=== PATIENT | female | born 1990 | race Two or more races ===

== ENCOUNTER 2024-05-15 17:23 | Observation (INO) | payer MEDICAID, SELFPAY ==
[2024-05-15 17:28] VITALS: BP 114/75; PULSE 96; TEMP 36.4
--- NOTE | 2024-05-15 17:40 | XR_ITS ---
Examination: Complete OB ultrasound greater than 14 weeks Date and time of exam: May 15, 2024 1957 hrs. Indications: Onset pelvic pain beginning 2 days ago Findings: Viable intrauterine single fetus with single amniotic sac presentation cephalic Cardiac motion 140 BPM Placenta posterior grade 1 Umbilical cord insertion seen Amniotic fluid index 13.9 cm Cervix 3.7 cm Ovaries obscured by bowel gas. Composite estimated gestational age based on BPD, head circumference, abdominal circumference, femur length is 22 weeks 6 days Estimated weight 531 g. Survey of intracranial anatomy, spinal anatomy, abdominal anatomy, four-chamber heart performed with no abnormalities identified. Impression: Viable intrauterine gestation cephalic presentation.
[2024-05-15 17:52] VITALS: BMI 28.9
[2024-05-15 17:53] VITALS: TEMP 36.4
[2024-05-15] MEDS: DiphenhydrAMINE 25 MG CAPSULE PO (18:10)
[2024-05-15] MEDS: ACETAMINOPHEN 325 MG TABLET 650 MG PO (19:04)
== END 2024-05-15 21:40 | disposition home or self-care (01) ==
PROVIDERS: Admitting Provider Obstetrics & Gynecology; Visit Provider Obstetrics & Gynecology
DX: O26.892 Other specified pregnancy related conditions, second trimester (principal); Z3A.23 23 weeks gestation of pregnancy; R10.31 Right lower quadrant pain
CPT/HCPCS: 59899; 76805; G0378; A9270

== ENCOUNTER 2024-06-02 14:05 | Observation (INO) | payer MEDICAID, SELFPAY ==
[2024-06-02 14:18] VITALS: BP 107/68; PULSE 108
[2024-06-02 14:33] VITALS: BP 104/64; PULSE 90
[2024-06-02 14:44] VITALS: BMI 29.0
[2024-06-02] MEDS: ACETAMINOPHEN 325 MG TABLET 650 MG PO (14:44)
[2024-06-02] MEDS: DiphenhydrAMINE 25 MG CAPSULE PO (14:44)
[2024-06-02 14:48] VITALS: BP 105/74; PULSE 104
[2024-06-02 15:03] VITALS: BP 105/75; PULSE 90
[2024-06-02 15:28] VITALS: BP 108/72; PULSE 98
[2024-06-02 15:32] VITALS: BP 104/72; PULSE 89
== END 2024-06-02 17:10 | disposition home or self-care (01) ==
PROVIDERS: Admitting Provider Obstetrics & Gynecology; Visit Provider Obstetrics & Gynecology
DX: O26.892 Other specified pregnancy related conditions, second trimester (principal); Z3A.26 26 weeks gestation of pregnancy; R51.9 Headache, unspecified
CPT/HCPCS: 59025; 59899; A9270

== ENCOUNTER 2024-06-18 21:30 | Observation (INO) | payer MEDICAID, SELFPAY ==
[2024-06-18 21:43] VITALS: BP 111/75; PULSE 116
[2024-06-18 21:54] VITALS: BMI 29.4
== END 2024-06-18 22:14 | disposition home or self-care (01) ==
PROVIDERS: Admitting Provider Obstetrics & Gynecology; Visit Provider Obstetrics & Gynecology
DX: O47.03 False labor before 37 completed weeks of gestation, third trimester (principal); Z3A.28 28 weeks gestation of pregnancy
CPT/HCPCS: 59899

== ENCOUNTER 2024-06-23 06:45 | Emergency (ER) | payer MEDICAID, SELFPAY ==
[2024-06-23 06:45] VITALS: BMI 28.7
[2024-06-23 07:01] VITALS: BP 107/76; PULSE 106; RESP 19; TEMP 37; O2SAT 98
--- NOTE | 2024-06-23 07:18 | EKG_ITS ---
[facility] Test Date: 2024-06-23 Pat Name: RENÉE PATEL Department: Room: - Gender: Female Admission Liaison: : 1990 Requested By: Megan Medina Order Number: [id number] Reading MD: Megan Medina Measurements Intervals Kyle Rate: 102 P: 73 MS: 154 QRS: 63 QRSD: 84 T: 42 QT: 332 QTc: 434 Interpretive Statements SINUS TACHYCARDIA NONSPECIFIC T-WAVE ABNORMALITY ABNORMAL RHYTHM ECG No previous ECG available for comparison /store/S0/[id number].pdf
--- NOTE | 2024-06-23 07:19 | PD.EDFEVER ---
ED Fever RME/HPI General Chief Complaint: Abdominal Pain Stated Complaint: ABD PAIN/SOB/FEVER 29WKS PREG Time Seen by Provider: 06/23/24 06:46 Arrival date/time: 06/23/24 06:45 RME / HPI RME / HPI Narrative: 33 year old female currently 29 weeks gestational age, A1, s/p cosmetic tummy surgery 3 years ago presents to the ED for evaluation of feeling unwell beginning 4 days ago. Reports subjective fevers, chills, body aches, nausea, vomiting, diarrhea, and abdominal pain. Additionally reports in the last 4 days is unable to tolerate much by mouth due to nausea and vomiting. Denies any vaginal discharge or bleeding. However does report 5 days ago was evaluated upstairs in the OB unit within this facility for small amount of vaginal bleeding and abdominal pain. No other associated symptoms reported. No known modifying factors at home. Related Data Home Medications ?Medication ?Instructions ?Recorded ?Confirmed aspirin 81 mg tablet,delayed 81 mg PO QDAY 06/02/24 06/02/24 release Previous Rx's ?Medication ?Instructions ?Recorded epinephrine 0.3 mg/0.3 mL See Rx Instructions .Route 10/27/19 injection, auto-injector (EpiPen .COMPLEX #2 ea 2-Isidoro) nitrofurantoin 100 mg PO Q12H 7 days #14 caps 06/23/24 monohydrate/macrocrystals 100 mg capsule (Macrobid) oseltamivir 75 mg capsule (Tamiflu) 75 mg PO BID 5 days #10 caps 06/23/24 Allergies Allergy/AdvReac Type Severity Reaction Status Date / Time bee venom protein (honey bee) Allergy Severe Swelling Verified 02/21/24 20:29 of Lip/Tongue/Throat butorphanol Allergy Severe UNKNOWN Verified 10/27/19 12:53 chlorhexidine Allergy Severe SWELLING Verified 10/27/19 12:53 TO THROAT latex Allergy Severe ROSE SKIN Verified 10/27/19 12:53 adhesive Allergy Intermediate ROSE SKIN Verified 10/27/19 12:53 Review of Systems Review of Systems Narrative Review of Systems: GEN: +subjective fevers, +chills, no weight loss, +body aches EYES: No discharge, no visual changes, no pain HEENT: No ear pain, no congestion, no sore throat PULM: No shortness of breath, no cough, no congestion CV: No chest pain, no dyspnea on exertion, no palpitations GI: +nausea, +vomiting, +diarrhea, +pain, no constipation : No frequency, no urgency, no dysuria MUSC/SKEL: No joint pain, no back pain SKIN: No rash NEURO: No weakness, no headache Past Medical History Past Medical History GASTROINTESTINAL: Positive Gastrointestinal Disorders and Gall Bladder Disease REPRODUCTIVE: Positive Previous Pregnancies Family History FAMILY HISTORY: Positive Family Respiratory Disorders Surgical History SURGICAL: Positive Abdominal Surgery and Section Social History SMOKING STATUS: Never smoker Physical Exam Narrative Physical exam: GENERAL APPEARANCE: alert and oriented x 4, well-developed, well-nourished, no acute distress HEENT: Normocephalic, atraumatic; pupils equal, round, reactive to light; EOMI; mucous membranes pink, moist; oropharynx clear NECK: Supple LUNGS: CTABL; no wheezes, no rales, no rhonchi HEART: Regular rate, regular rhythm; normal S1, S2; no murmurs ABDOMEN: non distended; normal BS; soft, diffuse abdominal tenderness, no guarding, no rebound; no masses, no organomegaly, no hernia BACK: no CVA tenderness EXTREMITIES: atraumatic; no edema NEUROLOGIC: awake; alert and oriented x4; cranial nerves II-XII grossly intact; no focal sensory or motor deficits PSYCHIATRIC: appropriate mood and affect SKIN: warm, dry, normal color; no rashes Course Quality Measures none Orders Category Date Time Status Bedside COVID-19 Antigen Test NOW Care 06/23/24 07:16 Active Bedside Influenza A&B Antigen Test NOW Care 06/23/24 07:16 Completed EKG (ED ONLY) *Do not use* NOW Care 06/23/24 07:18 Completed EKG (ED Only) Stat Exams 06/23/24 07:18 Draft Blood Culture (Lab) Stat Lab 06/23/24 07:40 Received CBC Stat Lab 06/23/24 07:45 Completed Comprehensive Metabolic Panel Stat Lab 06/23/24 07:45 Completed Lactate (Lactic Acid) Stat Lab 06/23/24 07:45 Completed Lipase Stat Lab 06/23/24 07:45 Completed Magnesium Stat Lab 06/23/24 07:45 Completed Procalcitonin Stat Lab 06/23/24 07:45 Completed Troponin I Stat Lab 06/23/24 07:45 Completed Urinalysis Stat Lab 06/23/24 12:07 Completed Urine Culture Stat Lab 06/23/24 12:07 Received Urine Culture Stat Lab 06/23/24 13:08 Ordered Acetaminophen Tab [Tylenol ES Tab] Med 06/23/24 07:48 Discontinued 1,000 mg PO X1 ONE KCL 10% Liq UDC 15 ML Med 06/23/24 10:00 Discontinued 40 meq PO X1 ONE Nitrofurantoin Macro [Macrobid] Med 06/23/24 13:18 Discontinued 100 mg PO X1 ONE Ondansetron Inj [Zofran Inj] Med 06/23/24 07:47 Discontinued 4 mg IV X1 ONE Oseltamivir [Tamiflu] Med 06/23/24 07:47 Discontinued 75 mg PO X1 ONE Sodium Chloride 0.9% 1000 ml [Ns] 1,000 ml Med 06/23/24 07:47 Discontinued IV 999 mls/hr Sodium Chloride 0.9% 1000 ml [Ns] 1,000 ml Med 06/23/24 08:17 Discontinued IV 999 mls/hr Reevaluation(s) Reevaluation #1: UA shows bacteriuria, will order dose of Macrobid. Patient remains clinically stable throughout the emergency department visit. We reviewed all the results, analysis, and treatment plans. Patient is amenable to discharge. Strict return precautions were outlined. Patient was discharged in stable condition. Time: 13:18 Vital Signs Vital signs: Vital Signs Temperature 98.6 F 06/23/24 07:01 Pulse Rate 106 H 06/23/24 07:01 Respiratory Rate 19 06/23/24 07:01 Blood Pressure 107/76 06/23/24 07:01 Pulse Oximetry (%) 98 06/23/24 07:01 Oxygen Delivery Method Room Air 06/23/24 07:01 Pulse ox is 98% on room air which is adequate. Fever MDM Narrative MDM Narrative:: Jessica Powers am scribing for and in the presence of Dr. Whitmore. Patient data External records reviewed:: [facility] previous records (I reviewed OB triage note from 06/18/2024) Clinical information provided by:: patient Social determinants that could affect healthcare access:: none Patient has the following chronic illnesses:: currently 29 weeks gestational age, A1, s/p cosmetic tummy surgery 3 years ago How is presenting disease/condition affected by chronic disease/condition?: uneffected by Evaluation data The following diagnostics were reviewed and interpreted by me:: lab results and EKG tracing(s) (sinus tachycardia, rate 102, mild diffuse flattening of the ST segments) Lab and/or radiology exams considered but not ordered:: None Interpretation Summary: Urine positive for bacteria, patient asymptomatic Medications / Prescriptions Medications or Prescriptions considered but not ordered:: None Medication administrations:: Medication Administration History Discontinued Medications Acetaminophen (Acetaminophen 500 Mg Tablet) 1,000 mg PO X1 ONE Stop: 06/23/24 07:49 Last Admin: 06/23/24 08:19 Dose: 1,000 mg Documented By: QUINTIN Sodium Chloride (Ns) 1,000 mls @ 999 mls/hr IV .Q1H1M ONE Stop: 06/23/24 08:47 Last Admin: 06/23/24 08:00 Dose: 999 mls/hr Documented By: QUINTIN Sodium Chloride (Ns) 1,000 mls @ 999 mls/hr IV .Q1H1M ONE Stop: 06/23/24 09:17 Last Admin: 06/23/24 10:43 Dose: 999 mls/hr Documented By: QUINTIN Nitrofurantoin Macrocrystals (Nitrofurantoin Macro 100 Mg Capsule) 100 mg PO X1 ONE Stop: 06/23/24 13:19 Ondansetron HCl (Ondansetron Inj 2 Mg/Ml Inj 2 Ml) 4 mg IV X1 ONE Stop: 06/23/24 07:48 Last Admin: 06/23/24 08:25 Dose: 4 mg Documented By: QUINTIN Oseltamivir Phosphate (Oseltamivir 75 Mg Capsule) 75 mg PO X1 ONE Stop: 06/23/24 07:48 Last Admin: 06/23/24 08:20 Dose: 75 mg Documented By: QUINTIN Potassium Chloride (Potassium Chloride 10% 20 Meq/15 Ml Udc) 40 meq PO X1 ONE Stop: 06/23/24 10:01 Last Admin: 06/23/24 10:48 Dose: 40 meq Documented By: QUINTIN See above Consultations Consultation(s) initiated? (list below): No Diagnosis Fever Differential Diagnosis: fever of unknown origin, gastroenteritis, community acquired pneumonia, viral infection, sepsis and influenza Most likely diagnosis given after review of the tests above:: Influenza B Bacteriuria, asymptomatic Admission Indicated Admission indicated?: not indicated Admission Request Was there a request for admission?: No Disposition Plan Disposition Plan: Discharge Discharge Attestation Discharge Attestation: The patient and all family members were given an opportunity to ask questions and understood the discharge instructions. Discharge instructions specifically effects, indications for sooner follow up or return to the emergency department, and the expected course of current diagnosis. Patient condition: Stable Discharge Plan Plan Patient Disposition: HOME (Self Care) Prescriptions/Referrals Prescriptions/Med Rec: New oseltamivir [Tamiflu] 75 mg capsule 75 mg PO BID 5 Days Qty: 10 0RF nitrofurantoin monohyd/m-cryst [Macrobid] 100 mg capsule 100 mg PO Q12H 7 Days Qty: 14 0RF Rx Instructions: must administer with a meal/food No Action epinephrine [EpiPen 2-Isidoro] 0.3 mg/0.3 mL auto-injector See Rx Instructions .ROUTE .COMPLEX Qty: 2 0RF Rx Instructions: Inject 1 auto-injector IM as needed for allergic reaction. aspirin 81 mg tablet,delayed release (DR/EC) 81 mg PO QDAY Patient Comments: TAKE 1 TABLET BY MOUTH EVERY DAY FOR 30 DAYS Referrals: Temporary Provider,ED [Physician] - In 1 week Problem List Clinical Impression: Influenza B, , Bacteriuria, asymptomatic, in Patient/Caregiver Discharge Instructions Education Materials: Influenza (Flu) and Print Language: Zambian Stand Alone Forms: Sol Award Info., Patient Portal Info Letter
--- NOTE | 2024-06-23 07:32 | PC.NURSE ---
patient alert and oriented. c/o generalized weakness, abd pain. states had n/v all day yesterday, also had diarrhea.
[2024-06-23 07:52] LABS: Lactate (Lactic Acid) 1.9 mMol/L (0.4-2.0)
[2024-06-23 07:55] LABS: Basophils % (Auto) 0 % (0-2.5); Eosinophils # (Auto) 0.1 Thou/mm3 (0.0-0.5); Eosinophils % (Auto) 2 % (0-10); Hematocrit 34.2 % (36.0-46.0); Hemoglobin 11.9 g/dL (12.0-16.0); Immature Granulocytes % (Auto) 1 % (0-0); Immature Granulocytes Auto 0.03 Thou/mm3 (0.00-0.00); Lymphocytes # (Auto) 0.8 Thou/mm3 (1.0-4.8); Lymphocytes % (Auto) 15 % (10-50); Mean Corpuscular HGB Conc 34.8 g/dl (31.0-37.0); Mean Corpuscular Volume 89 fL (80-100); Monocytes # (Auto) 0.3 Thou/mm3 (0.0-0.8); Monocytes % (Auto) 5 % (0-12); Neutrophils # (Auto) 4.2 Thou/mm3 (1.8-7.7); Neutrophils % (Auto) 78 % (37-80); Nucleated Red Blood Cell % 0 /100 WBC (0); Platelet Count 127 Thou/mm3 (140-440); RDW Standard Deviation 40.6 fL (36.4-46.3); Red Blood Count 3.84 Miln/mm3 (4.00-5.20); White Blood Count 5.4 Thou/mm3 (3.6-11.0)
[2024-06-23] MEDS: SODIUM CHLORIDE 0.9% 1000 ML 1,000 ML 999 ML IV ×2 (08:00→10:43)
[2024-06-23 08:10] VITALS: BP 97/62; PULSE 101; RESP 19; TEMP 37.2; O2SAT 99
[2024-06-23 08:19] VITALS: TEMP 37.2
[2024-06-23] MEDS: ACETAMINOPHEN 500 MG TABLET 1000 MG PO (08:19)
[2024-06-23] MEDS: OSELTAMIVIR 75 MG CAPSULE PO (08:20)
[2024-06-23 08:21] LABS: Alanine Aminotransferase 12 U/L (10-49); Albumin, Serum 3.6 gm/dL (3.5-5.0); Albumin/Globulin Ratio 1.3 (1.2-2.2); Alkaline Phosphatase 92 U/L (46-116); Anion Gap 11 (7-16); Aspartate Amino Transferase 15 U/L (0-34); BUN/Creatinine Ratio 13 Ratio (12-20); Bilirubin,Total 0.3 mg/dL (0.3-1.2); Blood Urea Nitrogen 8 mg/dL (9-23); Calcium 8.3 mg/dL (8.3-10.6); Calcium (Corrected) 8.6 mg/dL (8.5-10.1); Carbon Dioxide 21.9 mMol/L (20.0-31.0); Chloride 104 mMol/L (98-107); Creatinine (Component) 0.6 mg/dL (0.6-1.3); Globulin 2.7 gm/dL (2.3-3.5); Glucose 100 mg/dL (74-106); Lipase 35 U/L (12-53); Magnesium 1.6 mg/dL (1.6-2.6); Osmolality,Calculated 272 (275-295); Potassium 3.2 mMol/L (3.4-5.1); Procalcitonin 0.05 ng/ml (0.0-0.49); Sodium 137 mMol/L (136-145); Total Protein 6.3 gm/dL (5.7-8.2); Troponin I < 0.002 ng/mL (0.0-0.045); eGFR > 60 See Note
[2024-06-23] MEDS: ONDANSETRON INJ 2 MG/ML INJ 2 ML 4 MG IV (08:25)
[2024-06-23 10:23] VITALS: BP 93/58; PULSE 51; RESP 17; TEMP 37; O2SAT 96
[2024-06-23] MEDS: POTASSIUM CHLORIDE 10% 20 MEQ/15 ML UDC 40 MEQ PO (10:48)
[2024-06-23 12:43] LABS: Collection Type, Urine Catheter
[2024-06-23 12:59] LABS: Bacteria,Urine 1+; Bilirubin,Urine Negative (Negative); Blood,Urine Negative (Negative); Clarity,Urine Clear (Clear/Hazy); Color,Urine Lt-Yellow (Lt Yel-Yel); Glucose, Urine Negative (Negative); Ketones,Urine 2+ (Negative); Leukocyte Esterase,Urine Negative (Negative); Nitrite,Urine Negative (Negative); Protein,Urine Negative (Neg - Trace); RBC,Urine 2 /hpf (0-3); Specific Gravity,Urine 1.016 (1.001-1.035); Squamous Epithelial Cell,Urine 1 /hpf (0-5); Urobilinogen,Urine Negative mg/dL (0.0-1.0); WBC,Urine 2 /hpf (0-5)
[2024-06-23] MEDS: NITROFURANTOIN MACRO 100 MG CAPSULE PO (13:25)
[2024-06-23 13:54] VITALS: TEMP 36.6
== END 2024-06-23 13:56 | disposition home or self-care (01) ==
PROVIDERS: Emergency Provider Emergency Medicine; PCP Internal Medicine
DX: O99.513 Diseases of the respiratory system complicating pregnancy, third trimester (principal); J10.1 Influenza due to other identified influenza virus with other respiratory manifestations; O99.891 Other specified diseases and conditions complicating pregnancy; R82.71 Bacteriuria; R00.0 Tachycardia, unspecified; Z3A.29 29 weeks gestation of pregnancy
CPT/HCPCS: 36415; 80053; 81001; 83605; 83690; 83735; 84145; 84484; 85025; 87040; 87086; 87400; 87811; 93005; 96361; 96374; 99284; J2405; J7030; A9270

== ENCOUNTER 2024-07-14 19:03 | Observation (INO) | payer MEDICAID, SELFPAY ==
[2024-07-14 19:11] VITALS: TEMP 36.3; BMI 29.1
[2024-07-14 19:18] VITALS: BP 108/70; PULSE 100; RESP 100; RESP 18; TEMP 36.3
[2024-07-14 19:54] LABS: ROM Kit Lot # 57809118; ROM Swab Mixed By: CHADO; Rupture of Fetal Membranes Negative (Negative); Swb Mxed in Solvent 1 min? Yes
--- NOTE | 2024-07-14 20:23 | XR_ITS ---
Examination: Biophysical profile, ultrasound Date and time of exam: July 14, 2024 9:50 PM Indications: Leaking amniotic fluid today, labor Technique: Multiple transabdominal sonographic images of the pelvis abdomen obtained. Attention is directed to the breathing movement, gross body movement, amniotic fluid volume and tone. Findings: Amniotic fluid index 14.2 cm Total biophysical profile is 8 of 8. breathing movement is 2. Gross body movement is 2. tone is 2. Qualitative amniotic fluid volume is 2 Impression: Biophysical profile is 8 of 8.
--- NOTE | 2024-07-14 20:24 | XR_ITS ---
Examination: Complete OB ultrasound greater than 14 weeks Date and time of exam: July 14, 2024 2139 hrs. Comparison May 15, 2024 Indications: labor, leaking amniotic fluid today, size dates discrepancy Findings: Viable intrauterine single fetus with single amniotic sac presentation cephalic Cardiac motion 131 BPM Placenta posterior fundal grade 2 Umbilical cord insertion 3 vessel seen Amniotic fluid index 10.8 cm spine maternal right Ovaries obscured by bowel gas. Composite estimated gestational age based on BPD, head circumference, abdominal circumference, femur length is 32 weeks 6 days Estimated weight 1896 g. Survey of intracranial anatomy, spinal anatomy, abdominal anatomy, four-chamber heart performed with no abnormalities identified. Impression: Viable intrauterine gestation cephalic presentation Amniotic fluid index 10.8 cm Estimated gestational age 32 weeks 6 days Estimated weight 1896 g.
[2024-07-14] MEDS: RINGERS LACTATED 1000 ML 1,000 ML 100 ML IV (20:50)
[2024-07-14 21:39] LABS: Basophils % (Auto) 1 % (0-2.5); Eosinophils # (Auto) 0.1 Thou/mm3 (0.0-0.5); Eosinophils % (Auto) 2 % (0-10); Hematocrit 35.8 % (36.0-46.0); Hemoglobin 12.1 g/dL (12.0-16.0); Immature Granulocytes % (Auto) 1 % (0-0); Immature Granulocytes Auto 0.05 Thou/mm3 (0.00-0.00); Lymphocytes # (Auto) 1.7 Thou/mm3 (1.0-4.8); Lymphocytes % (Auto) 30 % (10-50); Mean Corpuscular HGB Conc 33.8 g/dl (31.0-37.0); Mean Corpuscular Volume 89 fL (80-100); Monocytes # (Auto) 0.5 Thou/mm3 (0.0-0.8); Monocytes % (Auto) 8 % (0-12); Neutrophils # (Auto) 3.4 Thou/mm3 (1.8-7.7); Neutrophils % (Auto) 59 % (37-80); Nucleated Red Blood Cell % 0 /100 WBC (0); Platelet Count 166 Thou/mm3 (140-440); RDW Standard Deviation 39.8 fL (36.4-46.3); Red Blood Count 4.04 Miln/mm3 (4.00-5.20); White Blood Count 5.7 Thou/mm3 (3.6-11.0)
[2024-07-14 22:20] VITALS: BP 99/57; PULSE 88
[2024-07-14 23:14] LABS: Syphilis Nonreactive (Nonreactive)
[2024-07-15 02:06] VITALS: BP 92/58; PULSE 89
[2024-07-15] MEDS: RINGERS LACTATED 1000 ML 1,000 ML 100 ML IV (05:46)
[2024-07-15 05:57] VITALS: BP 92/52; PULSE 83; TEMP 36.8
[2024-07-15 07:09] VITALS: RESP 19; TEMP 36.7
--- NOTE | 2024-07-15 08:00 | XR_ITS ---
Examination: Biophysical profile, ultrasound Date and time of exam: July 15, 2024 0748 hrs. Indications: Patient states leaking amniotic fluid, diagnosis labor Technique: Multiple transabdominal sonographic images of the pelvis abdomen obtained. Attention is directed to the breathing movement, gross body movement, amniotic fluid volume and tone. Findings: Amniotic fluid index 12.9 cm Total biophysical profile is 8 of 8. breathing movement is 2. Gross body movement is 2. tone is 2. Qualitative amniotic fluid volume is 2 Impression: Biophysical profile is 8 of 8.
== END 2024-07-15 09:12 | disposition home or self-care (01) ==
PROVIDERS: Admitting Provider Obstetrics & Gynecology; Visit Provider Student in an Organized Health Care Education/Training Program
DX: Z34.83 Encounter for supervision of other normal pregnancy, third trimester (principal); Z36.89 Encounter for other specified antenatal screening; Z3A.32 32 weeks gestation of pregnancy
CPT/HCPCS: 36415; 59899; 76805; 76819; 84112; 85025; 86780; 86850; 86900; 86901; 87081; J7120

== ENCOUNTER 2024-07-17 15:50 | Observation (INO) | payer MEDICAID, SELFPAY ==
[2024-07-17 16:05] VITALS: BP 112/69; PULSE 92
[2024-07-17 16:20] VITALS: BMI 29.0
[2024-07-17 16:57] VITALS: BP 112/69; PULSE 92; RESP 18; RESP 99; TEMP 36.9
== END 2024-07-17 16:35 | disposition home or self-care (01) ==
PROVIDERS: Admitting Provider Student in an Organized Health Care Education/Training Program; Visit Provider Student in an Organized Health Care Education/Training Program
DX: O26.893 Other specified pregnancy related conditions, third trimester (principal); R10.30 Lower abdominal pain, unspecified; M54.9 Dorsalgia, unspecified; Z3A.32 32 weeks gestation of pregnancy
CPT/HCPCS: 59025; 59899

== ENCOUNTER 2024-07-20 16:06 | Observation (INO) | payer MEDICAID, SELFPAY ==
--- NOTE | 2024-07-20 16:29 | XR_ITS ---
Examination: Biophysical profile, ultrasound Date and time of exam: July 20, 2024 at 1638 hours INDICATIONS: Pelvic pain beginning 2 days ago, leaking amniotic fluid beginning 2 days ago, diagnosis labor Technique: Multiple transabdominal sonographic images of the pelvis abdomen obtained. Attention is directed to the breathing movement, gross body movement, amniotic fluid volume and tone. Findings: Amniotic fluid index 9.5 cm Total biophysical profile is 8 of 8. breathing movement is 2. Gross body movement is 2. tone is 2. Qualitative amniotic fluid volume is 2 Impression: Biophysical profile is 8 of 8.
[2024-07-20 16:33] VITALS: BP 125/76; PULSE 98
[2024-07-20 17:51] LABS: ROM Kit Lot # 57809118
[2024-07-20 17:52] LABS: ROM Swab Mixed By: LOEFL; Rupture of Fetal Membranes Negative (Negative); Swb Mxed in Solvent 1 min? Yes
[2024-07-20 19:22] VITALS: BP 117/68; PULSE 99
[2024-07-20] MEDS: RINGERS LACTATED 1000 ML 1,000 ML 999 ML IV (19:30)
[2024-07-20 19:32] VITALS: BP 125/76; PULSE 98; RESP 19; RESP 98; TEMP 36.9; BMI 28.8
--- NOTE | 2024-07-20 20:03 | XR_ITS ---
Examination: OB Transvaginal ultrasound of the pelvis, Limited Technique: Transvaginal sonographic images pelvis performed using rpeston scale imaging Exam date and time: July 20, 20242035 hrs. Indications: Leaking amniotic fluid with pelvic pain beginning 2 days ago, diagnosis labor Findings: Cervix 4.1 cm closed Impression: Cervix 4.1 cm closed
--- NOTE | 2024-07-20 20:03 | XR_ITS ---
Examination: Complete OB ultrasound greater than 14 weeks Date and time of exam: July 20, 2024 2018 hrs. Indications: Abdominal pain beginning amniotic fluid with pelvic pain beginning 2 days ago, diagnosis labor Findings: Viable intrauterine single fetus with single amniotic sac presentation cephalic Cardiac motion 162 BPM Placenta fundal posterior grade 2 Umbilical cord insertion 3 vessel seen Amniotic fluid index 8.4 cm spine maternal left Cervix 3.8 cm BI-RADS 0 by bowel gas Left ovary 3.8 x 1.7 x 2.2 cm arterial flow. Composite estimated gestational age based on BPD, head circumference, abdominal circumference, femur length is 32 weeks 6 days Estimated weight 1936 g. Survey of intracranial anatomy, spinal anatomy, abdominal anatomy, four-chamber heart performed with no abnormalities identified. Impression: Viable intrauterine gestation cephalic presentation Estimated gestational age 32 weeks 6 days.
[2024-07-20] MEDS: ACETAMINOPHEN 325 MG TABLET 650 MG PO (20:17)
--- NOTE | 2024-07-20 21:22 | XR_ITS ---
Examination: Retroperitoneal ultrasound, complete Technique: Multiple high resolution grayscale images of the retroperitoneum obtained, including kidneys and bladder. Exam date and time:July 20 2024.37 hours Indications: Sudden onset right flank pain beginning one hour ago Findings: Right kidney 11.3 x 6.4 x 6.8 cm cortex 2.3 cm Left kidney 11.1 x 7.9 x 7.0 cm cortex 2.2 cm Mild renal parenchymal scar formation Contracted urinary bladder Impression: Mild renal parenchymal scar reformation No hydronephrosis
[2024-07-20] MEDS: ACETAMINOPHEN IVPB 1,000 MG/100 ML VIAL 250 MG IV (21:46)
[2024-07-20] MEDS: cefTRIAXone 1,000 MG in SODIUM CHLORIDE 0.9% (P) 50 ML 100 MG IV (21:47)
[2024-07-20 21:49] LABS: Collection Type, Urine Clean Catch
[2024-07-20 21:55] LABS: Basophils % (Auto) 0 % (0-2.5); Eosinophils # (Auto) 0.1 Thou/mm3 (0.0-0.5); Eosinophils % (Auto) 1 % (0-10); Hematocrit 35.7 % (36.0-46.0); Hemoglobin 12.2 g/dL (12.0-16.0); Immature Granulocytes % (Auto) 1 % (0-0); Immature Granulocytes Auto 0.08 Thou/mm3 (0.00-0.00); Lymphocytes # (Auto) 1.9 Thou/mm3 (1.0-4.8); Lymphocytes % (Auto) 25 % (10-50); Mean Corpuscular HGB Conc 34.2 g/dl (31.0-37.0); Mean Corpuscular Hemoglobin 29.5 pg (25.0-35.0); Mean Corpuscular Volume 86 fL (80-100); Monocytes # (Auto) 0.6 Thou/mm3 (0.0-0.8); Monocytes % (Auto) 8 % (0-12); Neutrophils # (Auto) 4.8 Thou/mm3 (1.8-7.7); Neutrophils % (Auto) 64 % (37-80); Nucleated Red Blood Cell % 0 /100 WBC (0); Platelet Count 147 Thou/mm3 (140-440); RDW Standard Deviation 38.5 fL (36.4-46.3); Red Blood Count 4.13 Miln/mm3 (4.00-5.20); White Blood Count 7.5 Thou/mm3 (3.6-11.0)
[2024-07-20 22:05] LABS: Bacteria,Urine 2+; Bilirubin,Urine Negative (Negative); Blood,Urine Negative (Negative); Budding Yeast,Urine Present; Clarity,Urine Clear (Clear/Hazy); Color,Urine Colorless (Lt Yel-Yel); Glucose, Urine 3+ (Negative); Ketones,Urine Negative (Negative); Leukocyte Esterase,Urine Negative (Negative); Nitrite,Urine Negative (Negative); PH,Urine 5.5 (5.0-7.0); Protein,Urine Negative (Neg - Trace); RBC,Urine 1 /hpf (0-3); Specific Gravity,Urine 1.006 (1.001-1.035); Squamous Epithelial Cell,Urine 1 /hpf (0-5); Urobilinogen,Urine Negative mg/dL (0.0-1.0); WBC,Urine 3 /hpf (0-5)
[2024-07-20 22:06] VITALS: BP 97/52; PULSE 85
[2024-07-20 22:10] LABS: Alanine Aminotransferase 7 U/L (10-49); Albumin, Serum 3.7 gm/dL (3.5-5.0); Albumin/Globulin Ratio 1.4 (1.2-2.2); Alkaline Phosphatase 119 U/L (46-116); Anion Gap 10 (7-16); Aspartate Amino Transferase 14 U/L (0-34); BUN/Creatinine Ratio 14 Ratio (12-20); Bilirubin,Total 0.4 mg/dL (0.3-1.2); Blood Urea Nitrogen 7 mg/dL (9-23); Calcium 8.9 mg/dL (8.3-10.6); Calcium (Corrected) 9.1 mg/dL (8.5-10.1); Chloride 106 mMol/L (98-107); Creatinine (Component) 0.5 mg/dL (0.6-1.3); Estimated Creatinine Clearance 146.5 mL/min (>60); Globulin 2.7 gm/dL (2.3-3.5); Glucose 187 mg/dL (74-106); Osmolality,Calculated 276 (275-295); Potassium 3.9 mMol/L (3.4-5.1); Sodium 137 mMol/L (136-145); Total Protein 6.4 gm/dL (5.7-8.2); eGFR > 60 See Note
--- NOTE | 2024-07-20 23:18 | PD.LDTRIAGE2 ---
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
[2024-07-21] MEDS: MORPHINE SULF INJ 10 MG/ML VIAL IVP (01:06)
[2024-07-21 01:49] VITALS: RESP 16; TEMP 36.6
[2024-07-21 04:32] VITALS: BP 92/55; PULSE 85; RESP 19; TEMP 36.8
[2024-07-21 07:48] VITALS: BP 111/70; PULSE 86; TEMP 37.1
== END 2024-07-21 09:05 | disposition hospice, home (50) ==
PROVIDERS: Admitting Provider Student in an Organized Health Care Education/Training Program; Visit Provider Student in an Organized Health Care Education/Training Program
DX: Z34.83 Encounter for supervision of other normal pregnancy, third trimester (principal); Z3A.32 32 weeks gestation of pregnancy
CPT/HCPCS: 36415; 59025; 59899; 76770; 76805; 76817; 76819; 80053; 81001; 84112; 85025; 87081; 87086; J0131; J0696; J2270; J7050; J7120; A9270

== ENCOUNTER 2024-07-27 09:58 | Observation (INO) | payer MEDICAID, SELFPAY ==
[2024-07-27 10:04] VITALS: BP 109/71; PULSE 89
[2024-07-27 10:05] VITALS: BP 107/71; PULSE 89; RESP 18; RESP 99; TEMP 36.7
--- NOTE | 2024-07-27 10:06 | XR_ITS ---
Examination: Biophysical profile, ultrasound Date and time of exam: July 27, 2024 1214 hours INDICATIONS: Patient leaking amniotic fluid beginning 10 days ago, diagnosis labor Technique: Multiple transabdominal sonographic images of the pelvis abdomen obtained. Attention is directed to the breathing movement, gross body movement, amniotic fluid volume and tone. Findings: Amniotic fluid index 10.1 cm Total biophysical profile is 8 of 8. breathing movement is 2. Gross body movement is 2. tone is 2. Qualitative amniotic fluid volume is 2 Impression: Biophysical profile is 8 of 8.
[2024-07-27 10:57] VITALS: BMI 28.7
[2024-07-27 11:13] LABS: ROM Kit Lot # 57809118; Rupture of Fetal Membranes Negative (Negative); Swb Mxed in Solvent 1 min? Yes
[2024-07-27 11:14] LABS: ROM Swab Mixed By: GARCN1
== END 2024-07-27 14:15 | disposition home or self-care (01) ==
PROVIDERS: Admitting Provider Obstetrics & Gynecology; Visit Provider Obstetrics & Gynecology
DX: Z34.83 Encounter for supervision of other normal pregnancy, third trimester (principal); Z3A.33 33 weeks gestation of pregnancy
CPT/HCPCS: 59025; 59899; 76819; 84112

== ENCOUNTER 2024-07-30 18:50 | Observation (INO) | payer MEDICAID, SELFPAY ==
[2024-07-30] VITALS (18 sets, daily range): BP systolic 108–121; BP diastolic 70–76; PULSE 98–123; RESP 19–100; TEMP 36.4; O2SAT 97–100; BMI 29.0
[2024-07-30 19:47] LABS: ROM Kit Lot # 57809118; ROM Swab Mixed By: CARMP2; Rupture of Fetal Membranes Negative (Negative); Swb Mxed in Solvent 1 min? Yes
--- NOTE | 2024-07-30 21:25 | PD.LDPN ---
Documentation for date of: 07/30/24 OB Labor Progress Note Status status: Category l Assessment and Plan Comments: Triage Note Brandi is a 33yo with SIUP at approx 34wk presenting to L&D for vaginal leakage of fluid and pelvic discomfort, sciatica. She has been seen for this concern multiple times throughout this . She notes no painful/regular ctx, no vaginal bleeding. Normal movement. She has had regular OB care with her OBGYN Previous pregnancies: history of term x2 and section x2 ROS negative other than what was described above. Vitals wnl, afebrile General: well developed, well nourished, no acute distress, conversant Cardiac: normal heart rate Lungs: breathing without distress Abdomen: soft, gravid, non-tender, no rebound or guarding Extremities: no pain with palpation of calves Per RN: No gross leakage of fluid or pooling with collection of AmniSure NST: Reactive, +accels, no decels, mod tomas [place]: Irregular ctx that spaced out to rare over time with hydration SCE: fingertip/70/-3 Bedside ultrasound performed by Dr. Farmer: SIUP with cephalic presentation, +FCA, active FM, posterior placenta, LEIDY 13cm Labs: AmniSure ROM Test: Negative Assessment: Brandi is a 33yo with SIUP at approx 34wk with no evidence of ROM. Normal physiologic discomforts of . Vitals wnl, benign exam. Reassuring status based on NST/LEIDY (modified BPP). Plan: -Discussed findings and diagnosis with patient, answered all questions to her apparent satisfaction -Continue routine follow up with OBGYN within 1 week -Discussed return precautions at length. Conchita Farmer MD
== END 2024-07-30 20:57 | disposition home or self-care (01) ==
PROVIDERS: Admitting Provider Obstetrics & Gynecology; Visit Provider Obstetrics & Gynecology
DX: Z34.83 Encounter for supervision of other normal pregnancy, third trimester (principal); Z3A.34 34 weeks gestation of pregnancy
CPT/HCPCS: 59025; 59899; 84112; 86850; 86900; 86901

== ENCOUNTER 2024-08-13 09:29 | Observation (INO) | payer MEDICAID, SELFPAY ==
[2024-08-13] VITALS (10 sets, daily range): BP systolic 107; BP diastolic 74; PULSE 85–105; RESP 18–100; TEMP 36.9; O2SAT 99–100; BMI 28.9
--- NOTE | 2024-08-13 09:53 | XR_ITS ---
Examination: Biophysical profile, ultrasound Date and time of exam: August 13, 2024 1118 hours INDICATIONS: Diagnosis gestational diabetes, leaking amniotic fluid 3 weeks Technique: Multiple transabdominal sonographic images of the pelvis abdomen obtained. Attention is directed to the breathing movement, gross body movement, amniotic fluid volume and tone. Findings: Amniotic fluid index 9.6 cm Total biophysical profile is 8 of 8. breathing movement is 2. Gross body movement is 2. tone is 2. Qualitative amniotic fluid volume is 2 Impression: Biophysical profile is 8 of 8.
== END 2024-08-13 11:41 | disposition home or self-care (01) ==
PROVIDERS: Admitting Provider Student in an Organized Health Care Education/Training Program; Visit Provider Student in an Organized Health Care Education/Training Program
DX: O47.03 False labor before 37 completed weeks of gestation, third trimester (principal); Z3A.36 36 weeks gestation of pregnancy
CPT/HCPCS: 59025; 59899; 76819

== ENCOUNTER 2024-08-18 11:44 | Observation (INO) | payer MEDICAID, SELFPAY ==
[2024-08-18 11:52] VITALS: BP 109/70; PULSE 109
--- NOTE | 2024-08-18 12:15 | XR_ITS ---
Examination: Biophysical profile, ultrasound Date and time of exam: August 18, 2024 1243 hours INDICATIONS: Onset vaginal bleeding today seeking amniotic fluid one month, diagnosis gestational diabetes Technique: Multiple transabdominal sonographic images of the pelvis abdomen obtained. Attention is directed to the breathing movement, gross body movement, amniotic fluid volume and tone. Findings: Amniotic fluid index 15.0 cm Total biophysical profile is 8 of 8. breathing movement is 2. Gross body movement is 2. tone is 2. Qualitative amniotic fluid volume is 2 Impression: Biophysical profile is 8 of 8.
[2024-08-18 12:41] LABS: ROM Kit Lot # 57809118; ROM Swab Mixed By: GASCH; Swb Mxed in Solvent 1 min? Yes
[2024-08-18 12:42] LABS: Rupture of Fetal Membranes Negative (Negative)
[2024-08-18 13:08] VITALS: BP 109/70; PULSE 109; RESP 100; RESP 18; TEMP 36.7; BMI 29.4
== END 2024-08-18 13:00 | disposition home or self-care (01) ==
PROVIDERS: Admitting Provider Student in an Organized Health Care Education/Training Program; Visit Provider Student in an Organized Health Care Education/Training Program
DX: O46.93 Antepartum hemorrhage, unspecified, third trimester (principal); Z3A.37 37 weeks gestation of pregnancy
CPT/HCPCS: 59025; 59899; 76819; 84112

== ENCOUNTER 2024-08-20 08:49 | Outpatient (RCR) | payer MEDICAID, SELFPAY ==
[2024-08-20 09:09] VITALS: BP 101/59; PULSE 88; RESP 16; TEMP 36.5
== END 2024-08-20 23:59 | disposition home or self-care (01) ==
LOC: S4S1 08:49
PROVIDERS: Referring Provider Student in an Organized Health Care Education/Training Program; Visit Provider Student in an Organized Health Care Education/Training Program
DX: O24.419 Gestational diabetes mellitus in pregnancy, unspecified control (principal); Z3A.37 37 weeks gestation of pregnancy
CPT/HCPCS: 59025

== ENCOUNTER 2024-08-21 05:07 | Inpatient (IN) | payer MEDICAID, SELFPAY ==
[2024-08-21] VITALS (35 sets, daily range): BP systolic 94–113; BP diastolic 60–76; PULSE 71–91; RESP 15–20; TEMP 36.5–37; O2SAT 91–100
[2024-08-21] MEDS: RINGERS LACTATED 1000 ML 1,000 ML 125 ML IV (05:25)
[2024-08-21 06:14] LABS: Basophils % (Auto) 1 % (0-2.5); Eosinophils # (Auto) 0.1 Thou/mm3 (0.0-0.5); Eosinophils % (Auto) 2 % (0-10); Hematocrit 36.4 % (36.0-46.0); Immature Granulocytes % (Auto) 1 % (0-0); Immature Granulocytes Auto 0.07 Thou/mm3 (0.00-0.00); Lymphocytes % (Auto) 27 % (10-50); Mean Corpuscular Hemoglobin 27.6 pg (25.0-35.0); Mean Corpuscular Volume 84 fL (80-100); Monocytes # (Auto) 0.5 Thou/mm3 (0.0-0.8); Monocytes % (Auto) 7 % (0-12); Neutrophils # (Auto) 4.5 Thou/mm3 (1.8-7.7); Neutrophils % (Auto) 62 % (37-80); Nucleated Red Blood Cell % 0 /100 WBC (0); Platelet Count 172 Thou/mm3 (140-440); Red Blood Count 4.34 Miln/mm3 (4.00-5.20); White Blood Count 7.2 Thou/mm3 (3.6-11.0)
--- NOTE | 2024-08-21 06:46 | ESHP_ITS ---
Documentation for date of: 08/21/24 OB Labor/Induct. HPI History of Present Illness : 6 Term pregnancies: 3 pregnancies: 0 Living children: 3 History of Abortions: Spontaneous and Elective: 0 History of sections: Yes History of : No Date of last menstrual period: 12/13/23 Gestational age based on last menstrual period: 36 History of present illness: 34 y/o @37w3d, admitted for repeat LTCS for uncontroleld GDMA2. Pt was started on insulin, however BS logs are not well controlled , multiple adjustments have been made. Previous Csection x2. sadiq has a h/o 34 week Csection and a 38week section , reports preclampsia as [facility] reason for early delivery. Current normal BP. Sadiq has been seen in [facility] triage almpost every week fdor concerns of contraction , pressure and leaking . Amnisure every time was negative, AFOI was wnl. Pt report contractions today as well. History of Present Adequate Care: Yes Labs Labs: Negative: HIV, Chlamydia, Gonorrhea and Group Beta Strep Review of Systems Review of Systems Narrative Review of Systems: GEN: +subjective fevers, +chills, no weight loss, +body aches EYES: No discharge, no visual changes, no pain HEENT: No ear pain, no congestion, no sore throat PULM: No shortness of breath, no cough, no congestion CV: No chest pain, no dyspnea on exertion, no palpitations GI: +nausea, +vomiting, +diarrhea, +pain, no constipation : No frequency, no urgency, no dysuria MUSC/SKEL: No joint pain, no back pain SKIN: No rash NEURO: No weakness, no headache Past Medical History Surgical History SURGICAL: Positive Section Meds Home Medications and Allergies Home Medications ?Medication ?Instructions ?Recorded ?Confirmed ?Type vit no.95-ferrous 1 tab PO DAILY 07/14/24 History fumarate 28 mg-folic acid 800 mcg tablet () Allergies Allergy/AdvReac Type Severity Reaction Status Date / Time bee venom protein (honey bee) Allergy Severe Swelling Verified 08/21/24 06:49 of Lip/Tongue/Throat butorphanol Allergy Severe Seizure Verified 08/21/24 06:49 chlorhexidine Allergy Severe SWELLING Verified 08/21/24 06:49 TO THROAT adhesive Allergy Intermediate ROSE SKIN Verified 08/21/24 06:49 latex Allergy Intermediate ROSE SKIN Verified 08/21/24 06:49 OB Exam Physical Exam Vital signs: Temp Pulse Resp BP Pulse Ox O2 Del Method 98.6 F 81 18 111/74 97 Room Air 08/21/24 05:40 08/21/24 05:41 08/21/24 05:40 08/21/24 05:41 08/21/24 06:42 08/21/24 05:40 Constitutional Constitutional: no acute distress Routine HEENT Exam Head: Present normocephalic and atraumatic Eye: Present EOMI and PERRL ENT: Present mucous membranes moist Routine Neck Exam Neck: Present supple and trachea midline Routine Cardiovascular Exam Cardiovascular: Present RRR Routine Abdominal Exam Abdominal: Present soft and normoactive bowel sounds Detailed Labor and Delivery Exam Comments: cat 1 FHT Routine Extremities Exam Extremities: Present full ROM Routine Skin Exam Skin: Present intact, dry and warm Routine Neurological Exam Neurological: Present alert, oriented X3 and CN II-XII intact Routine Psychiatric Exam Psychiatric: Present normal affect and normal thought process OB Results Labs 08/21/24 05:30 Labs: Short CBC 08/21/24 Range/Units 05:30 WBC 7.2 (3.6-11.0) Thou/mm3 Hgb 12.0 (12.0-16.0) g/dL Hct 36.4 (36.0-46.0) % Plt Count 172 (140-440) Thou/mm3 Impressions Impression: 34 Y/O @37W3D, Admitted for RLTCS Prev Csection x2 NIPT wnl GDMA2 on insulin , uncontrolled Placenta post ,manatomy normal OB Assessment & Plan Additional Plan Additional Plan Comment: Repeat Low transverse csection antibiotic prophylaxis DVT prophylaxis
[2024-08-21 07:01] LABS: Syphilis Nonreactive (Nonreactive)
[2024-08-21] MEDS: ceFAZolin/D5W 2 GM IV 2 GM/100 ML BAG IV (07:13)
[2024-08-21] MEDS: FAMOTIDINE INJ 10 MG/ML VIAL 2 ML 20 MG IV (07:13)
[2024-08-21] MEDS: CITRIC ACID/SODIUM CITR 15 ML UDC (BICITRA) 30 ML PO (07:13)
[2024-08-21] MEDS: METOCLOPRAMIDE INJ 5 MG/ML VIAL 2 ML 10 MG IVP (07:24)
[2024-08-21] MEDS: SODIUM CHLORIDE 0.9% 1000 ML 1,000 ML 125 ML IV (10:03)
[2024-08-21] MEDS: HYDROcodone/APAP 5/325 TABLET 2 TAB PO (10:38)
[2024-08-21] MEDS: ONDANSETRON INJ 2 MG/ML INJ 2 ML 4 MG IV (13:40)
[2024-08-21 15:16] LABS: Basophils % (Auto) 0 % (0-2.5); Eosinophils % (Auto) 0 % (0-10); Hemoglobin 10.9 g/dL (12.0-16.0); Immature Granulocytes % (Auto) 1 % (0-0); Immature Granulocytes Auto 0.06 Thou/mm3 (0.00-0.00); Lymphocytes % (Auto) 10 % (10-50); Mean Corpuscular HGB Conc 34.1 g/dl (31.0-37.0); Mean Corpuscular Hemoglobin 28.4 pg (25.0-35.0); Mean Corpuscular Volume 83 fL (80-100); Monocytes # (Auto) 0.1 Thou/mm3 (0.0-0.8); Monocytes % (Auto) 1 % (0-12); Neutrophils # (Auto) 8.6 Thou/mm3 (1.8-7.7); Neutrophils % (Auto) 88 % (37-80); Nucleated Red Blood Cell % 0 /100 WBC (0); Platelet Count 169 Thou/mm3 (140-440); RDW Standard Deviation 38.9 fL (36.4-46.3); Red Blood Count 3.84 Miln/mm3 (4.00-5.20); White Blood Count 9.8 Thou/mm3 (3.6-11.0)
[2024-08-21] MEDS: ACETAMINOPHEN 325 MG TABLET 650 MG PO (15:22)
--- NOTE | 2024-08-21 15:30 | PD.LDDELS ---
Data (James) Data Hx Section: Yes : 6 Para: 4 Term: 2 : 2 : 1 Delivery Data (James) Labor Data ROM Date: 08/21/24 ROM Time: 07:59 Rupture Type: AROM Delivery Data Labor Onset Stage 1 Date: 08/21/24 Labor Onset Stage 1 Time: 07:59 Labor Onset Stage 2 Date: 08/21/24 Labor Onset Stage 2 Time: 07:59 Delivery Date: 08/21/24 Delivery Time: 07:59 Gestational age (weeks): 37 Gestational age (days): 3 Placenta Delivery Date: 08/21/24 Placenta Delivery Time: 08:00 Delivered by: Griffin Dickson Delivery nurse: Denisse Monroe Other staff at delivery: 2nd Nurse Other staff at delivery: Nursery Nurse Other staff at delivery: 2nd Nurse Other staff at delivery: Other staff at delivery: Ashlee Garcia Other staff at delivery: Savi Murphy Other staff at delivery: Mae Other staff at delivery: Bernardo Delivery Method Delivery: Delivery Type: Repeat Anesthesia Type Primary Anesthesia: Spinal EBL Estimated blood loss (ml): 300 [place] Data (James) [place] Data Gender: Male Infant Weight Grams: 3130 1 Minute Total: 8 5 Minute Total: 9
--- NOTE | 2024-08-21 15:31 | ESOP_ITS ---
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 Identity was confirmed by double identifiers and she was placed on the operating table.The abdomen and perineum were prepped in the usual sterile fashion and a Sagastume catheter was placed to continuous drainage.? Sterile drapes were applied.??A Pfannenstiel skin incision was made with a scalpel and carried to the subcutaneous fat up to the rectus fascia.? The rectus fascia was incised on either side of the midline and the incisions were extended bilaterally.? The fascia was gently dissected off the ventral surface of the rectus muscle both superiorly and inferiorly. Carefully a peritioneal window created hysterotomy incision made and extended bluntly with finger. Rupture of membranes revealed clear fluid. The baby was found vertex presentation and was delivered via vertex. . The umbilical cord , was doubly clamped, divided and the was handed over to the waiting team.? True knot seen with 2 rounds of nuchal cord placenta delivered by controlled cord traction . The interior of the uterus was now thorougly cleaned of all blood and debris and membranes.?The? hysterotomy was closed using 0 vicryl suture in double layers. Once the repair was completed the hysterotomy was inspected, was noted to be adequately hemostatic . Muscle oozing stopped by bovie. The rectus fascia was repaired us ing Vicryl 0 in a running fashion.? The subcutaneous layer was now, approximated with 3-0 vicryl in double layers.? All bleeding points were cauterized using the Bovie.?The skin was closed using 4-0 Monocryl in a subcuticular fashion.? The skin was cleaned and a sterile dressing was applied. The patient was now undraped, the abdomen and back were thoroughly cleaned and she was now transferred to the recovery room in a stable Estimated blood loss (ml): 300 Estimated blood loss (ml): 300 Surgical staff Operation Date: 08/27/24 07:45 <No data on this case meets the specified criteria> Diagnosis Problem List Completed Was Problem List Reviewed/Reconciled?: Yes
[2024-08-21] MEDS: OXYTOCIN in NS 20 units 20 UNIT/1,000 ML BAG 125 UNIT IV (18:00)
[2024-08-21] MEDS: KETOROLAC INJ 30 MG/ML VIAL IVP (19:51)
[2024-08-22] MEDS: KETOROLAC INJ 30 MG/ML VIAL IVP (02:16)
[2024-08-22 04:20] VITALS: BP 95/58; PULSE 82; RESP 18; TEMP 36.7; O2SAT 97
[2024-08-22 08:15] VITALS: BP 104/69; PULSE 82; RESP 18; TEMP 36.9; O2SAT 97
[2024-08-22] MEDS: HYDROcodone/APAP 5/325 TABLET 2 TAB PO (09:30)
--- NOTE | 2024-08-22 09:52 | ESPR_ITS ---
Subjective Subjective Interval history: POD #1 doing well . Off the Toradol and now on Independence and Ibuprofen Exam Vital Signs Temp Pulse Resp BP Pulse Ox O2 Del Method 98.0 F 82 18 95/58 L 97 Room Air 08/22/24 04:20 08/22/24 04:20 08/22/24 04:20 08/22/24 04:20 08/22/24 04:20 08/22/24 04:20 Narrative Exam POD #11 doing well She is voiding and passed flatus and wants to shower, lochia is average Constitutional Constitutional: no acute distress Routine HEENT Exam Head: Present normocephalic and atraumatic Routine Respiratory Exam Respiratory: Present chest non-tender, lungs clear, normal breath sounds, no resp distress and CTA bilaterally Routine Cardiovascular Exam Cardiovascular: Present RRR Routine Abdominal Exam Abdominal: Present soft and normoactive bowel sounds Routine Extremities Exam Extremities: Present full ROM and pulses intact Comments: no calf tenderness Routine Skin Exam Skin: Present intact and normal turgor Routine Neurological Exam Neurological: Present alert, oriented X3, CN II-XII intact and vision grossly intact Routine Psychiatric Exam Psychiatric: Present normal affect, normal thought process, cooperative and good judgment Objective Labs 08/21/24 14:45 08/23/24 11:29 Labs: Laboratory Results - last 24 hr 08/21/24 14:45 WBC 9.8 RBC 3.84 L Hgb 10.9 L Hct 32.0 L MCV 83 MCH 28.4 MCHC 34.1 RDW Std Deviation 38.9 Plt Count 169 Neut % (Auto) 88 H Lymph % (Auto) 10 [place] % (Auto) 1 Eos % (Auto) 0 Baso % (Auto) 0 Neut # (Auto) 8.6 H Lymph # (Auto) 1.0 Good[place] # (Auto) 0.1 Eos # (Auto) 0.0 Baso # (Auto) 0.0 Immature Gran # (Auto) 0.06 H Absolute Nucleated RBC 0.00 Immature Gran % 1 H Nucleated RBC % 0 Assessment & Plan Assessment Comment Assessment comment: Doing well Can shower Routine Post and post op care likely discharge tomorrow Time Spent With Patient Time: Total time spent is greater than 50% in coordination of care (as documented) at patient's floor/unit and/or counseling patient:
[2024-08-22 12:38] VITALS: BP 106/61; PULSE 97; RESP 18; TEMP 36.8; O2SAT 98
[2024-08-22] MEDS: IBUPROFEN TAB 400 MG TABLET 800 MG PO (14:12)
[2024-08-22] MEDS: HYDROcodone/APAP 5/325 TABLET 1 TAB PO ×2 (15:43→20:47)
[2024-08-22 20:35] VITALS: BP 109/69; PULSE 81; RESP 18; TEMP 36.6; O2SAT 97
[2024-08-23] MEDS: IBUPROFEN TAB 400 MG TABLET 800 MG PO ×3 (00:02→15:40)
[2024-08-23] MEDS: HYDROcodone/APAP 5/325 TABLET 1 TAB PO ×2 (01:35→15:35)
[2024-08-23 04:00] VITALS: BP 96/57; PULSE 74; RESP 17; TEMP 36.7; O2SAT 97
[2024-08-23 07:55] VITALS: BP 99/62; PULSE 72; RESP 18; TEMP 36; O2SAT 97
[2024-08-23 08:14] VITALS: TEMP 36.8
[2024-08-23] MEDS: Milk Of Magnesia Susp 30 ML UDC PO (08:14)
[2024-08-23] MEDS: DOCUSATE SOD 100 MG CAPSULE PO (08:15)
[2024-08-23] MEDS: HYDROcodone/APAP 5/325 TABLET 2 TAB PO (08:58)
--- NOTE | 2024-08-23 10:58 | XR_ITS ---
Examination: Venous duplex lower extremity sonogram, bilateral. Date and time of exam: August 23, 2024 1119 hrs. Indications: Bilateral leg swelling and pain today August 21, 2022 Technique: Multiple sonographic images of the deep venous system have been obtained. B-mode/2-D grayscale imaging of vascular structures and Doppler spectral analysis (waveforms) and color performed Both legs are examined. Findings: Deep venous systems do not demonstrate abnormal echogenicity. All visualized deep veins exhibit compressibility. All visualized deep veins exhibit augmentation. Impression: Negative for deep vein thrombosis
[2024-08-23 12:05] LABS: Albumin, Serum 3.1 gm/dL (3.5-5.0); Anion Gap 9 (7-16); BUN/Creatinine Ratio 12 Ratio (12-20); Blood Urea Nitrogen 6 mg/dL (9-23); Calcium 8.2 mg/dL (8.3-10.6); Calcium (Corrected) 8.9 mg/dL (8.5-10.1); Carbon Dioxide 22.8 mMol/L (20.0-31.0); Chloride 107 mMol/L (98-107); Creatinine (Component) 0.5 mg/dL (0.6-1.3); Estimated Creatinine Clearance 183.2 mL/min (>60); Glucose 73 mg/dL (74-106); Osmolality,Calculated 274 (275-295); Phosphorous 4.3 mg/dL (2.4-5.1); Sodium 139 mMol/L (136-145); eGFR > 60 See Note
--- NOTE | 2024-08-23 12:24 | PD.LDDS ---
DS: Providers Provider Date of admission: 08/21/24 05:07 Primary care physician: Melvin Rojas MD Admitting Provider: Nghia Franks MD Attending Provider on Admission: Griffin Dickson MD Consults: 08/21/24 08:46 Referral Routine Comment: Attending Provider on DC: Deepti Kumar MD Discharging Provider: Deepti Kumar MD Anticipated date of discharge: 08/23/24 DS: Diagnosis Discharge Diagnosis (1) Intrauterine : Status: Acute Assessment & Plan: Had a repeat c section on 08/21/2024 (2) Previous section: Status: Acute Assessment & Plan: had a reapeat c section (3) Delivery by section: Status: Acute Assessment & Plan: doing well except c/o facial swelling and lower extremity pain , clinically low probability of DVT doppler for both lower extremities ordered Problem List Completed Was Problem List Reviewed/Reconciled?: Yes Summary/Hosp Course Brief History: 34 y/o @37w3d, admitted for repeat LTCS for uncontroleld GDMA2. Pt was started on insulin, however BS logs are not well controlled , multiple adjustments have been made. Previous Csection x2. sadiq has a h/o 34 week Csection and a 38week section , reports preclampsia as lima reason for early delivery. Current normal BP. Sadiq has been seen in [place] triage almpost every week fdor concerns of contraction , pressure and leaking . Amnisure every time was negative, AFOI was wnl. Pt report contractions today as well. Peripartum Data Procedures: Procedures Operation Date: 08/21/24 07:45 Actual Procedure Side Surgeon p in OB Not Applicable Griffin Dickson MD Operation Date: 08/27/24 07:45 <No data on this case meets the specified criteria> Status at Discharge Cognitive/behavioral status at discharge: normal but feels her face is swollen and also feels has pain along both her lower legs Homans negative and no calf swelling or redness no calf tenderness Functional status at discharge: independent ambulation Time Spent with Patient Time attestation: Total time spent providing and/or coordinating discharge services: Time spent: Less than 30 minutes Exam Vital Signs Temp Pulse Resp BP Pulse Ox O2 Del Method 98.3 F 72 18 99/62 97 Room Air 08/23/24 08:14 08/23/24 07:55 08/23/24 07:55 08/23/24 07:55 08/23/24 07:55 08/23/24 07:55 Narrative Exam see above , incision is C,D and intact no CVAT , soft abdomen , no fundal tendernes and appropriate mild Tenderness near incision Constitutional Constitutional: no acute distress Routine Neck Exam Neck: Present supple and full ROM Routine Respiratory Exam Respiratory: Present chest non-tender, lungs clear, normal breath sounds, no resp distress and CTA bilaterally Routine Cardiovascular Exam Cardiovascular: Present RRR Routine Abdominal Exam Abdominal: Present soft and normoactive bowel sounds Comments: see narrative Routine Extremities Exam Extremities: Present full ROM, pulses intact and calf tenderness (none ) Routine Skin Exam Skin: Present intact and normal turgor Routine Neurological Exam Neurological: Present alert, oriented X3, CN II-XII intact, normal reflexes and vision grossly intact Routine Psychiatric Exam Psychiatric: Present normal thought process, cooperative and anxious Comments: mild anxiety / coping well Discharge Plan Plan Patient Disposition: HOME (Self Care) Prescriptions/Referrals Prescriptions/Med Rec: New hydrocodone-acetaminophen 5-325 mg tablet 1 tab PO Q6H MDD 4 PRN (Reason: pain) Qty: 14 0RF Rx Instructions: patient is taking it in house without any problems ibuprofen 800 mg tablet 800 mg PO Q8H Qty: 30 1RF No Action epinephrine [EpiPen 2-Isidoro] 0.3 mg/0.3 mL auto-injector See Rx Instructions .ROUTE .COMPLEX Qty: 2 0RF Rx Instructions: Inject 1 auto-injector IM as needed for allergic reaction. PNV cmb#95-ferrous fumarate-FA [] 28 mg iron- 800 mcg tablet 1 tab PO DAILY Patient Comments: TAKE 1 TABLET BY MOUTH EVERY DAY Referrals: Melvin Rojas MD [Primary Care Provider] - Patient/Caregiver Discharge Instructions Education Materials: C Section Dc Print Language: [place] Stand Alone Forms: Sol Award Info., Patient Portal Info Letter, DC from Surgery Discharge Order Discharge Orders: Discharge (Routine); Ordered 08/23/24 Ordered By: Deepti Kumar Planned Discharge Date 08/23/24
[2024-08-23] MEDS: ACETAMINOPHEN 325 MG TABLET 650 MG PO (13:17)
[2024-08-23 15:38] VITALS: BP 113/74; PULSE 83; RESP 18; TEMP 36.8; O2SAT 97
[2024-08-23 15:40] VITALS: TEMP 36.8
== END 2024-08-23 16:05 | disposition home or self-care (01) | DRG 540 ==
LOC: S4SX 06:56 → S4NX 08:02
PROVIDERS: Obstetrics & Gynecology; Admitting Provider Obstetrics & Gynecology; PCP Internal Medicine; Visit Provider Student in an Organized Health Care Education/Training Program
PROC: 10D00Z1 Extraction of Products of Conception, Low, Open Approach (ICD-10-PCS; CPT 59514; principal; 2024-08-21 07:30)
PROC: (CPT 59514; principal; 2024-08-27 07:30)
DX: O34.211 Maternal care for low transverse scar from previous cesarean delivery (principal); Z3A.37 37 weeks gestation of pregnancy; Z37.0 Single live birth; O24.424 Gestational diabetes mellitus in childbirth, insulin controlled; O69.81X0 Labor and delivery complicated by cord around neck, without compression, not applicable or unspecified; O75.89 Other specified complications of labor and delivery; M79.606 Pain in leg, unspecified; Z91.040 Latex allergy status; Z91.09 Other allergy status, other than to drugs and biological substances; Z79.899 Other long term (current) drug therapy; Z79.4 Long term (current) use of insulin
CPT/HCPCS: 36415; 80069; 85025; 86780; 86850; 86900; 86901; 93970; A4649; J0689; J1100; J1885; J2250; J2274; J2371; J2405; J2590; J2765; J3010; J3490; J7030; J7120; A9270; J2270

== ENCOUNTER 2024-10-29 20:22 | Emergency (ER) | payer MEDICAID, SELFPAY ==
[2024-10-29 20:23] VITALS: BMI 23.8
[2024-10-29 20:30] VITALS: BP 138/74; PULSE 94; RESP 24; TEMP 37.2; O2SAT 98
--- NOTE | 2024-10-29 20:36 | PD.EDALLER ---
ED Allergic Reaction RME/HPI General Chief complaint: Allergic Reaction Stated complaint: STUNG BY BEE, EPI PEN USED Time Seen by Provider: 10/29/24 20:33 Arrival date/time: 10/29/24 20:22 RME / HPI RME / HPI narrative: DR. WHITMORE MAIN ED EVALUATION: 34 y/o female with Hx of Gall Bladder Disease, Diabetes Mellitus Type 2, Hyperthyroidism, and bee venom allergy presents to ED s/p bee sting to the left thigh x today. Patient reports boyfriend administered Epi pen. Patient states that she now only feels jittery and as if there is something in her throat. Patient denies any other associated symptoms or aggravating factors. No modifying factors, no radiation, no migration. No pain reported overall. Related Data Home Medications ?Medication ?Instructions ?Recorded ?Confirmed vit no.95-ferrous 1 tab PO DAILY 07/14/24 08/21/24 fumarate 28 mg-folic acid 800 mcg tablet () Previous Rx's ?Medication ?Instructions ?Recorded epinephrine 0.3 mg/0.3 mL See Rx Instructions .Route 10/27/19 injection, auto-injector (EpiPen .COMPLEX #2 ea 2-Isidoro) hydrocodone 5 mg-acetaminophen 325 1 tab PO Q6H PRN pain #14 tabs 08/23/24 mg tablet ibuprofen 800 mg tablet 800 mg PO Q8H #30 tabs 08/23/24 Allergies Allergy/AdvReac Type Severity Reaction Status Date / Time bee venom protein (honey bee) Allergy Severe Swelling Verified 10/29/24 20:23 of Lip/Tongue/Throat butorphanol Allergy Severe Seizure Verified 10/29/24 20:23 chlorhexidine Allergy Severe SWELLING Verified 10/29/24 20:23 TO THROAT adhesive Allergy Intermediate ROSE SKIN Verified 10/29/24 20:23 latex Allergy Intermediate ROSE SKIN Verified 10/29/24 20:23 Review of Systems Review of Systems Systems Reviewed: All systems reviewed, normal except as documented Narrative Review of Systems: Gen: No fever, no chills, no weight loss, positive jitteriness EYES: No discharge, no visual changes, no pain HEENT: No ear pain, no congestion, no sore throat, something in her throat PULM: No shortness of breath, no cough, no congestion CV: No chest pain, no dyspnea on exertion, no palpitations GI: No nausea, no vomiting, no diarrhea, no pain, no constipation : No frequency, no urgency, no dysuria Musc/skel: No joint pain, no back pain Skin: No rash, Positive Bee sting Psyc: No hallucinations, no depression Heme/Lymph: No easy bleeding or bruising tendencies Neuro: No weakness, no headache Past Medical History Past Medical History GASTROINTESTINAL: Positive Gastrointestinal Disorders and Gall Bladder Disease REPRODUCTIVE: Positive Previous Pregnancies ENDOCRINE: Positive Diabetes Mellitus Type 2 (mother, grandmother) and Hyperthyroidism (mother) Family History FAMILY HISTORY: Positive Family Respiratory Disorders (daughter, mother) Surgical History SURGICAL: Positive Abdominal Surgery ( section) and Section ED Exam Narrative Physical exam: GENERAL APPEARANCE: alert and oriented x 4, well-developed, well-nourished, mildly anxious, slightly tremulous VITALS: All vitals were reviewed and the pulse ox is 98% on room air, which is normal according to my interpretation. HEENT: Normocephalic, atraumatic; pupils equal, round, reactive to light; EOMI; mucous membranes pink, moist; repeatedly clearing throat NECK: Supple LUNGS: CTABL; no wheezes, no rales, no rhonchi HEART: Tachycardic, regular rhythm; normal S1, S2; no murmurs ABDOMEN: non distended; normal BS; soft, no tenderness, no guarding, no rebound; no masses, no organomegaly, no hernia BACK: no CVA tenderness EXTREMITIES: atraumatic; no edema NEUROLOGIC: awake; alert and oriented x4; cranial nerves II-XII grossly intact; no focal sensory or motor deficits PSYCHIATRIC: appropriate mood and affect, mildly anxious SKIN: warm, dry, normal color; no rashes Course Course Course Narrative: 2027: Ordered Diphehydramine, Famotidine, and Methylprednisolone. Quality Measures none Orders Category Date Time Status DiphenhydrAMINE INJ [Benadryl Inj] Med 10/29/24 20:28 Discontinued 25 mg IVP X1 ONE DiphenhydrAMINE INJ [Benadryl Inj] Med 10/29/24 20:31 Discontinued 50 mg .ROUTE .STK-MED ONE Famotidine Inj [Pepcid Inj] Med 10/29/24 20:31 Discontinued 20 mg .ROUTE .STK-MED ONE Famotidine Inj [Pepcid Inj] Med 10/29/24 20:28 Discontinued 20 mg IVP X1 ONE MethylPREDNISolone.* [SoluMEDROL Inj] Med 10/29/24 20:30 Discontinued 125 mg .ROUTE .STK-MED ONE MethylPREDNISolone.* [SoluMEDROL Inj] Med 10/29/24 20:28 Discontinued 125 mg IVP X1 ONE Reevaluation(s) Reevaluation #1: Patient reports feeling sleepy, but overall better. I informed patient that we normally observe for 6 hours, but patient is asking to go home due to having 4 children at home. Patient will remain under observation for 1 more hour to assure no rebound reaction. Time: 21:42 Vital Signs Vital signs: Vital Signs Temperature 98.9 F 10/29/24 20:30 Pulse Rate 94 10/29/24 20:30 Respiratory Rate 24 H 10/29/24 20:30 Blood Pressure 138/74 H 10/29/24 20:30 Pulse Oximetry (%) 98 10/29/24 20:30 Oxygen Delivery Method Room Air 10/29/24 20:30 Allergic Reaction MDM Narrative MDM Narrative:: Scribe Attestation: I, Sandra Adan, am scribing for and in the presence of Dr. Whitmore. Provider Notation: Although this document has been carefully reviewed, there may still be some phonetic and other typographical errors. These errors are purely grammatical due to imperfections in the software program and should not be construed in any way to compromise the substance of the patient's medical care during this visit. Patient data External records reviewed:: [facility] previous records (Reviewed prior ED records from 06/23/24. Patient was seen for Bacteriuria, asymptomatic, in .) Clinical information provided by:: patient Social determinants that could affect healthcare access:: none Patient has the following chronic illnesses:: Gall Bladder Disease, Diabetes Mellitus Type 2, Hyperthyroidism, and bee venom allergy How is presenting disease/condition affected by chronic disease/condition?: exacerbated by Evaluation data The following diagnostics were reviewed and interpreted by me:: other (specify) (None ordered.) Lab and/or radiology exams considered but not ordered:: None Interpretation Summary: N/A Medications / Prescriptions Medications or Prescriptions considered but not ordered:: None Medication administrations:: Medication Administration History Discontinued Medications Diphenhydramine HCl (Diphenhydramine Inj 50 Mg/Ml Vial) 25 mg IVP X1 ONE Stop: 10/29/24 20:29 Last Admin: 10/29/24 20:40 Dose: 25 mg Documented By: RICK Diphenhydramine HCl (Diphenhydramine Inj 50 Mg/Ml Vial) Confirm Administered Dose 50 mg .ROUTE .STK-MED ONE Stop: 10/29/24 20:32 Last Admin: 10/29/24 20:41 Dose: Not Given Documented By: RICK Non-Admin Reason: Override Medication Famotidine (Famotidine Inj 10 Mg/Ml Vial 2 Ml) 20 mg IVP X1 ONE Stop: 10/29/24 20:29 Last Admin: 10/29/24 20:40 Dose: 20 mg Documented By: RICK Famotidine (Famotidine Inj 10 Mg/Ml Vial 2 Ml) Confirm Administered Dose 20 mg .ROUTE .STK-MED ONE Stop: 10/29/24 20:32 Last Admin: 10/29/24 20:41 Dose: Not Given Documented By: RICK Non-Admin Reason: Override Medication Methylprednisolone Sodium Succinate (Methylprednisolone Sod Succ 62.5 Mg/Ml 2ml Vial) 125 mg IVP X1 ONE Stop: 10/29/24 20:29 Last Admin: 10/29/24 20:40 Dose: 125 mg Documented By: RICK Methylprednisolone Sodium Succinate (Methylprednisolone Sod Succ 62.5 Mg/Ml 2ml Vial) Confirm Administered Dose 125 mg .ROUTE .STK-MED ONE Stop: 10/29/24 20:31 Last Admin: 10/29/24 20:41 Dose: Not Given Documented By: RICK Non-Admin Reason: Override Medication See above if any Consultations Consultation(s) initiated? (list below): No Diagnosis Differential Diagnosis allergic reaction: anaphylaxis, allergic reaction and adverse reaction to drug Most likely diagnosis given after review of the tests above:: Bee sting, Allergic reaction to bee sting Admission Indicated Admission indicated?: not indicated Admission Request Was there a request for admission?: No Disposition Plan Disposition Plan: Discharge Discharge Attestation Discharge Attestation: The patient and all family members were given an opportunity to ask questions and understood the discharge instructions. Discharge instructions specifically effects, indications for sooner follow up or return to the emergency department, and the expected course of current diagnosis. Patient condition: Stable Discharge Plan Plan Patient Disposition: HOME (Self Care) Prescriptions/Referrals Prescriptions/Med Rec: No Action epinephrine [EpiPen 2-Isidoro] 0.3 mg/0.3 mL auto-injector See Rx Instructions .ROUTE .COMPLEX Qty: 2 0RF Rx Instructions: Inject 1 auto-injector IM as needed for allergic reaction. hydrocodone-acetaminophen 5-325 mg tablet 1 tab PO Q6H MDD 4 PRN (Reason: pain) Qty: 14 0RF Rx Instructions: patient is taking it in house without any problems ibuprofen 800 mg tablet 800 mg PO Q8H Qty: 30 1RF PNV cmb#95-ferrous fumarate-FA [] 28 mg iron- 800 mcg tablet 1 tab PO DAILY Patient Comments: TAKE 1 TABLET BY MOUTH EVERY DAY Referrals: Shelley Hernandez PA-C [Primary Care Provider] - In 1 week Problem List Clinical Impression: Bee sting, Allergic reaction to bee sting Patient/Caregiver Discharge Instructions Education Materials: ED BEE STING General Allergic Rxn Print Language: Citizen Of [place] Stand Alone Forms: Sol Award Info., Patient Portal Info Letter
[2024-10-29] MEDS: DiphenhydrAMINE INJ 50 MG/ML VIAL 25 MG IVP (20:40)
[2024-10-29] MEDS: FAMOTIDINE INJ 10 MG/ML VIAL 2 ML 20 MG IVP (20:40)
[2024-10-29] MEDS: MethylPREDNISolone SOD SUCC 62.5 MG/ML 2ML VIAL 125 MG IVP (20:40)
[2024-10-29 21:30] VITALS: BP 107/69; PULSE 66; RESP 18; O2SAT 99
[2024-10-29 23:00] VITALS: BP 104/68; PULSE 69; RESP 18; TEMP 37.1; O2SAT 97
[2024-10-29 23:52] VITALS: BP 104/68; PULSE 75; RESP 20; O2SAT 98
== END 2024-10-29 23:54 | disposition home or self-care (01) ==
PROVIDERS: Emergency Provider Emergency Medicine; PCP Physician Assistant
DX: T63.441A Toxic effect of venom of bees, accidental (unintentional), initial encounter (principal); Z91.030 Bee allergy status
CPT/HCPCS: 99284; J1200; J2919; J3490

== ENCOUNTER 2025-01-08 08:50 | Emergency (ER) | payer MEDICAID, SELFPAY ==
[2025-01-08 09:03] VITALS: BP 107/73; PULSE 96; RESP 17; TEMP 36.8; O2SAT 98; BMI 25.8
--- NOTE | 2025-01-08 09:15 | XR_ITS ---
Examination: Complete OB ultrasound, less than 14 weeks, transabdominal Date and time of exam: January 08, 2025 1041 hours INDICATIONS: Vaginal bleeding and cramping beginning 3 days ago Technique: Obstetrical ultrasound images less than 14 weeks performed via transabdominal imaging Findings: Uterus 10.7 cm endometrial stripe 0.9 cm No uterine mass or intrauterine gestation Right ovary 3.4 cm arterial flow. Left ovary 3.6 cm arterial flow IMPRESSION: Negative study
--- NOTE | 2025-01-08 09:16 | EDNOTE_ITS ---
ED OB Contraction Preg RMI/HPI General Chief complaint: Vaginal Bleeding Stated complaint: 5 weeks OB, vaginal bleeding X 3 days Time Seen by Provider: 01/08/25 09:18 Source: patient Arrival date/time: 01/08/25 08:50 34-year-old female with no known medical history presents to the emergency room with a chief complaint of vaginal bleeding and passing clots x 3 days. Patient also states she is having pelvic cramping. Patient is currently 5 weeks . She is a G7, P5. Mode of arrival: ambulatory Limitations: no limitations Related Data Home Medications ?Medication ?Instructions ?Recorded ?Confirmed vit no.95-ferrous 1 tab PO DAILY 07/14/24 fumarate 28 mg-folic acid 800 mcg tablet () Previous Rx's ?Medication ?Instructions ?Recorded epinephrine 0.3 mg/0.3 mL See Rx Instructions .Route 0 10/27/19 injection, auto-injector (EpiPen .COMPLEX #2 ea 2-Isidoro) hydrocodone 5 mg-acetaminophen 325 1 tab PO Q6H PRN pa in #14 tabs 08/23/24 mg tablet ibuprofen 800 mg tablet 800 mg PO Q8H #30 tabs 08/23 Allergies Allergy/AdvReac Type Severity Reaction Status Date / Time bee venom protein (honey bee) Allergy Severe Swelling Verified 01/08/25 08:55 of Lip/Tongue/Throat butorphanol Allergy Severe Seizure Verified 01/08/25 08:55 chlorhexidine Allergy Severe SWELLING Verified 01/08/25 08:55 TO THROAT adhesive Allergy Intermediate ROSE SKIN Verified 01/08/25 08:55 latex Allergy Intermediate ROSE SKIN Verified 01/08/25 08:55 Review of Systems Review of Systems Systems Reviewed: All systems reviewed, normal except as documented Constitutional Constitutional: Reports system reviewed and no additional complaints, except as documented, Denies fatigue, Denies fever(s), Denies headache(s) and Denies weakness Eyes Eyes: Reports system reviewed and no additional complaints, except as documented, Denies blurry vision and Denies change in vision ENT Ears, Nose, Mouth, and Throat: Reports system reviewed and no additional complaints, except as documented, Denies otalgia, Denies headache(s), Denies nasal congestion, Denies throat swelling and Denies vertigo Cardiovascular Cardiovascular: Reports system reviewed and no additional complaints, except as documented, Denies chest pain, Denies dyspnea and Denies dyspnea on exertion Respiratory Respiratory: Reports system reviewed and no additional complaints, except as documented, Denies chest congestion, Denies cough, Denies dyspnea, Denies dyspnea on exertion and Denies wheezing Gastrointestinal Gastrointestinal: Reports system reviewed and no additional complaints, except as documented, Denies abdominal pain, Denies cramping, Denies nausea and Denies vomiting Genitourinary Genitourinary: Reports system reviewed and no additional complaints, except as documented, Reports abnormal vaginal bleeding and Reports pelvic pain Musculoskeletal Musculoskeletal: Reports system reviewed and no additional complaints, except as documented and Denies back pain Integumentary/Breasts Skin/Breast: Reports system reviewed and no additional complaints, except as documented and Denies wounds Neurologic Neurologic: Reports system reviewed and no additional complaints, except as documented, Denies confusion, Denies headache(s), Denies lack of coordination, Denies vertigo and Denies weakness Psychiatric Psychiatric: Reports system reviewed and no additional complaints, except as documented, Denies anxiety, Denies confusion, Denies depression, Denies paranoia, Denies suicidal ideation and Denies tactile hallucinations Endocrine Endocrine: Reports system reviewed and no additional complaints, except as documented and Denies fatigue Hematologic/Lymphatic Hematologic/Lymphatic: Reports system reviewed and no additional complaints, except as documented and Denies lymphadenopathy Allergic/Immunologic Allergic/Immunologic: Reports system reviewed and no additional complaints, except as documented, Denies throat swelling, Denies urticaria and Denies wheezing Past Medical History Past Medical History NEUROLOGIC: Negative Neurological Disorders or Seizures (pt declined hx of seizure) CARDIAC: Negative Cardiac Disorders, Hypercholesterolemia or Congestive Heart Failure RESPIRATORY: Negative Chronic Obstructive Pulmonary Disease (COPD) or Asthma GASTROINTESTINAL: Positive Gastrointestinal Disorders and Gall Bladder Disease; Negative Hepatitis or Colorectal Cancer GENITOURINARY: Negative Genitourinary Disorders, Renal Disease or Prostate Canc er REPRODUCTIVE: Positive Previous Pregnancies; Negative Breast Cancer, Endometriosis, Genital Herpes, Gonorrhea, Pelvic Inflammatory Disease, Syphilis, Testicular Cancer or Uterine Prolapse MUSCULOSKELETAL: Negative Musculoskeletal Disorders or Bone Cancer ENT: Negative Cataracts, Glaucoma, Blind, Retinal Detachment, Macular Degeneration, Ear Infection, Deafness or Eye Prosthesis ENDOCRINE: Positive Diabetes Mellitus Type 2 (mother, grandmother) and Hyperthyroidism (mother); Negative Endocrine Disorders or Diabetes Mellitus Type 1 HEMATOLOGIC: Negative Blood Disorders or Sickle Cell Disease OTHER HISTORY: Negative Hospitalization, Autoimmune Disease, Down Syndrome, Developmental Delay, Shingles, Falls, Blood Transfusions, Blood Transfusion Reaction, Anesthesia Reactions, Organ Transplant, Chemotherapy, Radiation Therapy, Hyperbaric Therapy, MRSA, VRSA, Vancomycin-Resistant Enterococci, Human Immunodeficiency Virus (HIV), Chicken Pox, Measles, Mumps, Rubella (Citizen [place] Measles), Pertussis, Clostridium Difficile, Breast Cancer, Cervical Cancer, Colorectal Cancer, Lung Cancer, Ovarian Cancer, Prostate Cancer or Testicular Cancer Family History FAMILY HISTORY: Positive Family Respiratory Disorders (daughter, mother); Negative Family Psychiatric Problems, Family Cardiac Disorders, Family Gastrointestinal Problems, Family Cancer, Family Surgery or Family Anesthesia Reaction Surgical History SURGICAL: Positive Abdominal Surgery ( section) and Section; Negative Organ Transplant Social History SMOKING STATUS: Never smoker ED Exam General Limitations: Present no limitations General appearance: Present alert and in no apparent distress Head Head exam: Present atraumatic Eye Eye exam: Present normal appearance, PERRL and EOMI ENT ENT exam: Present normal exam, normal oropharynx and mucous membranes moist Neck Neck exam: Present normal inspection, full ROM and trachea midline Chest Chest inspection: Present normal inspection and symmetric chest wall rise Respiratory Respiratory exam: Present normal lung sounds bilaterally Cardiovascular Cardiovascular exam: Present regular rate, normal rhythm and normal heart sounds Abdominal Exam Abdominal exam: Present soft, tenderness and normal bowel sounds Abdominal tenderness: Present suprapubic and mild Extremities Exam Extremities exam: Present normal inspection and full ROM Back Exam Back exam: Present normal inspection and full ROM Neurological Exam Neurological exam: Present alert, oriented X3 and CN II-XII intact Psychiatric Psychiatric exam: Present normal affect and normal mood Skin Skin exam: Present warm, dry, intact and normal color Course Quality Measures none Orders Category Date Time Status US OB <= 14 weeks fetus Stat Exams 01/08/25 09:15 Completed ABO/RH Type Stat Lab 01/08/25 09:56 Completed Beta HCG,Quantitative Stat Lab 01/08/25 09:56 Completed CBC Stat Lab 01/08/25 09:56 Completed CMP [Comprehensive Metabolic Panel] Stat Lab 01/08/25 09:56 Completed UA [Urinalysis] Stat Lab 01/08/25 09:21 Completed HYDROcodone*/APAP 5/325 [[place] 5/325] Med 01/08/25 11:47 Discontinued 1 tab PO X1 ONE Vital Signs Vital signs: Vital Signs Temperature 98.3 F 01/08/25 09:03 Pulse Rate 96 01/08/25 09:03 Respiratory Rate 17 01/08/25 09:03 Blood Pressure 107/73 01/08/25 09:03 Pulse Oximetry (%) 98 01/08/25 09:03 Oxygen Delivery Method Room Air 01/08/25 09:03 Vaginal Bleeding MDM Narrative MDM Narrative: 34-year-old female with no known medical history presents to the emergency room with a chief complaint of vaginal bleeding and passing clots x 3 days. Patient also states she is having pelvic cramping. Patient is currently 5 weeks . She is a G7, P5. Patient is hemodynamically stable and in no apparent distress Patient has some bilateral pelvic pain. Patient denies any fevers or dysuria. Ultrasound OB was completed and was a negative study. No intra uterine gestation or uterine mass was found. There was arterial flow to both ovaries. hCG levels were less than 1. Patient was discharged and educated to follow-up with primary care provider in the next 24 to 48 hours and return to the emergency room for any evidence of worsening signs or symptoms Patient data External records reviewed:: [facility] previous records Clinical information provided by:: patient Social determinants that could affect healthcare access:: none Patient has the following chronic illnesses:: No chronic illness How is presenting disease/condition affected by chronic disease/condition?: no chronic disease Evaluation data The following diagnostics were reviewed and interpreted by me:: lab results and radiology exam(s) Lab and/or radiology exams considered but not ordered:: Labs and radiology exams considered and ordered Interpretation Summary: Ultrasound OB-Findings: Uterus 10.7 cm endometrial stripe 0.9 cm No uterine mass or intrauterine gestation Right ovary 3.4 cm arterial flow. Left ovary 3.6 cm arterial flow IMPRESSION: Negative study Medications / Prescriptions Medications or Prescriptions considered but not ordered:: No medication given Medication administrations:: Medication Administration History Discontinued Medications Hydrocodone Bitart/Acetaminophen (Hydrocodone/Apap 5/325 Tablet) 1 tab PO X1 ONE Stop: 01/08/25 11:48 Last Admin: 01/08/25 12:02 Dose: 1 tab Documented By: No medication given Consultations Consultation(s) initiated? (list below): No Diagnosis Vaginal Bleeding Differential Diagnosis: threatened , dysfunctional uterine bleeding, incomplete , ectopic without intrauterine and vaginal bleeding Most likely diagnosis given after review of the tests above:: Vaginal bleeding Admission Indicated Admission indicated?: not indicated Admission Request Was there a request for admission?: No Disposition Plan Disposition Plan: Discharge Discharge Attestation Discharge Attestation: The patient and all family members were given an opportunity to ask questions and understood the discharge instructions. Discharge instructions specifically effects, indications for sooner follow up or return to the emergency department, and the expected course of current diagnosis. Patient condition: Stable Discharge Plan Plan Patient Disposition: HOME (Self Care) Discharge Disposition comment: Stable Prescriptions/Referrals Prescriptions/Med Rec: No Action epinephrine [EpiPen 2-Isidoro] 0.3 mg/0.3 mL auto-injector See Rx Instructions .ROUTE .COMPLEX Qty: 2 0RF Rx Instructions: Inject 1 auto-injector IM as needed for allergic reaction. hydrocodone-acetaminophen 5-325 mg tablet 1 tab PO Q6H MDD 4 PRN (Reason: pain) Qty: 14 0RF Rx Instructions: patient is taking it in house without any problems ibuprofen 800 mg tablet 800 mg PO Q8H Qty: 30 1RF PNV cmb#95-ferrous fumarate-FA [] 28 mg iron- 800 mcg tablet 1 tab PO DAILY Patient Comments: TAKE 1 TABLET BY MOUTH EVERY DAY Referrals: No Primary/Family,Physician [Primary Care Provider] - In 1 week Problem List Clinical Impression: Vaginal bleeding Patient/Caregiver Discharge Instructions Education Materials: ED Dysfunctional Uterine Bleeding Additional Instructions: Please follow-up with your [facility] in the next 24 to 48 hours The ultrasound that was completed did not see an intrauterine mass or any intrauterine gestation. Your hCG levels are less than 1. For any evidence of worsening signs or symptoms return the emergency room immediately Print Language: Burmese Stand Alone Forms: Sol Award Info., Patient Portal Info Letter PA/CHETAN Supervising Physician PA/CHETAN Supervising Physician: Dr. Arroyo
[2025-01-08 09:51] LABS: Bilirubin,Urine Negative (Negative); Blood,Urine 1+ (Negative); Clarity,Urine Clear (Clear/Hazy); Collection Type, Urine Clean Catch; Color,Urine Yellow (Lt Yel-Yel); Glucose, Urine Negative (Negative); Ketones,Urine Negative (Negative); Leukocyte Esterase,Urine Negative (Negative); Nitrite,Urine Negative (Negative); PH,Urine 5.5 (5.0-7.0); Protein,Urine Trace (Neg - Trace); RBC,Urine 7 /hpf (0-3); Specific Gravity,Urine 1.035 (1.001-1.035); Squamous Epithelial Cell,Urine 2 /hpf (0-5); Urobilinogen,Urine Negative mg/dL (0.0-1.0); WBC,Urine 2 /hpf (0-5)
[2025-01-08 10:26] LABS: Basophils # (Auto) 0.0 Thou/mm3 (0.0-0.2); Basophils % (Auto) 1 % (0-2.5); Eosinophils # (Auto) 0.1 Thou/mm3 (0.0-0.5); Eosinophils % (Auto) 1 % (0-10); Hematocrit 38.6 % (36.0-46.0); Hemoglobin 13.1 g/dL (12.0-16.0); Immature Granulocytes Auto 0.01 Thou/mm3 (0.00-0.00); Lymphocytes # (Auto) 1.9 Thou/mm3 (1.0-4.8); Lymphocytes % (Auto) 33 % (10-50); Mean Corpuscular HGB Conc 33.9 g/dl (31.0-37.0); Mean Corpuscular Hemoglobin 28.5 pg (25.0-35.0); Mean Corpuscular Volume 84 fL (80-100); Monocytes # (Auto) 0.4 Thou/mm3 (0.0-0.8); Monocytes % (Auto) 7 % (0-12); Neutrophils # (Auto) 3.3 Thou/mm3 (1.8-7.7); Neutrophils % (Auto) 59 % (37-80); Nucleated Red Blood Cell # 0.00 Thou/mm3 (0.00-0.00); Nucleated Red Blood Cell % 0 /100 WBC (0); Platelet Count 213 Thou/mm3 (140-440); RDW Standard Deviation 40.0 fL (36.4-46.3); Red Blood Count 4.60 Miln/mm3 (4.00-5.20); White Blood Count 5.7 Thou/mm3 (3.6-11.0)
[2025-01-08 10:37] LABS: Alanine Aminotransferase 45 U/L (10-49); Albumin, Serum 4.4 gm/dL (3.5-5.0); Albumin/Globulin Ratio 1.4 (1.2-2.2); Alkaline Phosphatase 66 U/L (46-116); Anion Gap 10 (7-16); Aspartate Amino Transferase 35 U/L (0-34); BUN/Creatinine Ratio 11 Ratio (12-20); Beta HCG,Quantitative < 1 mIU/mL (<5.0); Bilirubin,Total 1.0 mg/dL (0.3-1.2); Blood Urea Nitrogen 9 mg/dL (9-23); Calcium 8.7 mg/dL (8.3-10.6); Calcium (Corrected) 8.7 mg/dL (8.5-10.1); Carbon Dioxide 22.3 mMol/L (20.0-31.0); Chloride 108 mMol/L (98-107); Creatinine (Component) 0.8 mg/dL (0.6-1.3); Estimated Creatinine Clearance 88.9 mL/min (>60); Globulin 3.1 gm/dL (2.3-3.5); Glucose 89 mg/dL (74-106); Osmolality,Calculated 277 (275-295); Potassium 3.8 mMol/L (3.4-5.1); Sodium 140 mMol/L (136-145); Total Protein 7.5 gm/dL (5.7-8.2); eGFR > 60 See Note
[2025-01-08 11:59] VITALS: BP 121/75; PULSE 80; RESP 16; TEMP 36.9; O2SAT 100
[2025-01-08] MEDS: HYDROcodone/APAP 5/325 TABLET 1 TAB PO (12:02)
== END 2025-01-08 12:33 | disposition home or self-care (01) ==
PROVIDERS: Emergency Provider Nurse Practitioner Family
DX: O20.9 Hemorrhage in early pregnancy, unspecified (principal); Z3A.01 Less than 8 weeks gestation of pregnancy
CPT/HCPCS: 36415; 76801; 80053; 81001; 84702; 85025; 86900; 86901; 99283; A9270